=== PATIENT | female | born 1970 | race American Indian/Alaskan Native ===

== ENCOUNTER 2021-02-19 09:02 | Emergency (ER) | payer OTHER ==
[2021-02-19] MEDS ORDERED: ONDANSETRON 4 MG/2 ML INJ IV ONE (09:20)
[2021-02-19] MEDS ORDERED: MORPHINE 4 MG/1 ML INJ IV ONE (09:20)
--- NOTE | 2021-02-19 09:24 | Emergency Department Report ---
ED Abdominal Pain HPI - General Stated Complaint: LOW BACK PAIN Time Seen by Provider: 02/19/21 09:16 Source: patient, EMS - History of Present Illness Initial Comments: Patient is 50 years old female with history of hypertension and hypothyroidism. Patient presented to the ER complaining of sudden onset of right flank pain that radiated down to her suprapubic area. Patient stated the pain started last night. Patient described her pain as cramping in nature. Patient pain associated with nausea but no vomiting. Patient also describes increased urinary frequency and dysuria. No hematuria. No fever or chills. MD Complaint: abdominal pain, flank pain -: Last night Location: suprapubic, R flank Migration to: no migration Severity: severe Severity scale (0 -10): 10 Quality: sharp Associated Symptoms: nausea - Related Data Allergies Allergy/AdvReac Type Severity Reaction Status Date / Time No Known Allergies Allergy Verified 02/19/21 09:20 ED Review of Systems ROS: Stated complaint: LOW BACK PAIN Other details as noted in HPI Comment: All other systems reviewed and negative Constitutional: denies: chills, fever Respiratory: denies: cough, shortness of breath, SOB with exertion Cardiovascular: denies: chest pain, palpitations Gastrointestinal: abdominal pain, nausea. denies: vomiting, diarrhea, constipation, hematemesis Genitourinary: urgency, frequency Musculoskeletal: back pain Neurological: denies: headache, weakness ED Physical Exam - General General appearance: alert, in no apparent distress - Head Head exam: Present: atraumatic, normocephalic, normal inspection - Eye Eye exam: Present: normal appearance, PERRL - ENT ENT exam: Present: normal exam, normal orophraynx, mucous membranes moist - Neck Neck exam: Present: normal inspection, full ROM. Absent: tenderness, meningismus - Respiratory Respiratory exam: Present: normal lung sounds bilaterally - Cardiovascular Cardiovascular Exam: Present: regular rate, normal rhythm, normal heart sounds - GI/Abdominal GI/Abdominal exam: Present: soft, normal bowel sounds. Absent: distended, tenderness, guarding, rebound, rigid, organomegaly, mass, bruit, pulsatile mass, hernia - Extremities Exam Extremities exam: Present: normal inspection, full ROM, normal capillary refill. Absent: tenderness, pedal edema, joint swelling - Back Exam Back exam: Present: normal inspection, full ROM, CVA tenderness (R). Absent: CVA tenderness (L), muscle spasm, paraspinal tenderness, vertebral tenderness - Neurological Exam Neurological exam: Present: alert, oriented X3, CN II-XII intact, normal gait, reflexes normal. Absent: motor sensory deficit - Psychiatric Psychiatric exam: Present: normal mood - Skin Skin exam: Present: warm, intact, normal color ED Course Vital Signs 02/19/21 02/19/21 02/19/21 09:20 09:54 15:18 Temperature 97.7 F Pulse Rate 62 54 L Respiratory 16 16 Rate Blood Pressure 145/84 Blood Pressure 130/74 [Left] O2 Sat by Pulse 96 98 Oximetry ED Medical Decision Making - Lab Data Result diagrams: 02/19/21 09:20 02/19/21 09:20 - Radiology Data Radiology results: report reviewed - Medical Decision Making Patient is 50 years old female with history of hypertension and hypothyroidism. Patient presented to the ER complaining of sudden onset of right flank pain that radiated down to her suprapubic area. Patient stated the pain started last night. Patient described her pain as cramping in nature. Patient pain associated with nausea but no vomiting. Patient also describes increased urinary frequency and dysuria. No hematuria. No fever or chills. Patient received morphine, Dilaudid and Zofran. Patient stated that she is feeling better. Labs reviewed and showed a UTI. Patient received Rocephin 1 g IV. Patient stated that she was diagnosed with sciatica by her primary care physician few days ago. Patient advised to follow-up back with her primary doctor for further management including an MRI of the back. Patient given prescription for tramadol, Zofran and prednisone and Macrobid and advised to return to the ER if she develop any new symptoms. Critical care attestation.: If time is entered above; I have spent that time in minutes in the direct care of this critically ill patient, excluding procedure time. ED Disposition Clinical Impression: Acute abdominal pain, Acute back pain, UTI (urinary tract infection) Disposition: 01 HOME / SELF CARE / HOMELESS Is pt being admited?: No Condition: Stable Instructions: Acute Back Pain, Adult, Urinary Tract Infection, Adult, [id number], Abdominal Pain, Adult, [id number] Referrals: PRIMARY CARE, [Primary Care Provider] - 3-5 Days
[2021-02-19 09:57] LABS: Basophils # (Auto) 0.2 K/mm3 (0.0-0.1); Basophils % (Auto) 1.8 % (0.0-1.8); Eosinophils # (Auto) 0.2 K/mm3 (0.0-0.4); Eosinophils % (Auto) 2.6 % (0.0-4.3); Hematocrit 40.2 % (30.3-42.9); Hemoglobin 13.4 gm/dl (10.1-14.3); Lymphocytes # (Auto) 1.9 K/mm3 (1.2-5.4); Lymphocytes % (Auto) 21.4 % (13.4-35.0); Mean Corpuscular HGB Conc 33 % (30-34); Mean Corpuscular Volume 81 fl (79-97); Monocytes # (Auto) 0.4 K/mm3 (0.0-0.8); Monocytes % (Auto) 4.2 % (0.0-7.3); Platelet Count 276 K/mm3 (140-440); Red Blood Count 4.98 M/mm3 (3.65-5.03); Red Cell Distribution Width 14.5 % (13.2-15.2)
[2021-02-19 10:20] LABS: BUN/Creatinine Ratio TNR; Blood Urea Nitrogen TNR mg/dL (7-17)
[2021-02-19 10:21] LABS: Alanine Aminotransferase TNR units/L (7-56); Albumin TNR g/dL (3.9-5); Bilirubin,Direct TNR mg/dL (0-0.2); Calcium TNR mg/dL (8.4-10.2)
[2021-02-19 10:22] LABS: Hemolysis Index TNR
[2021-02-19 11:13] LABS: Bilirubin,Urine NEG (Negative); Blood,Urine NEG (Negative); Color,Urine Yellow (Yellow)
[2021-02-19] MEDS ORDERED: HYDROmorphone 1 MG/1 ML INJ IV ONE (12:05)
--- NOTE | 2021-02-19 14:48 | Cat Scan Report ---
CT ABDOMEN AND PELVIS WITHOUT CONTRAST INDICATION / CLINICAL INFORMATION: ABDOMINAL PAIN. TECHNIQUE: Axial CT images were obtained through the abdomen and pelvis without IV contrast. All CT scans at this location are performed using CT dose reduction for ALARA by means of automated exposure control. COMPARISON: None available. FINDINGS: LOWER CHEST: No significant abnormality. LIVER: No significant abnormality. GALLBLADDER: Cholecystectomy. BILE DUCTS: No significant abnormality. PANCREAS: No significant abnormality. SPLEEN: No significant abnormality. ADRENALS: No significant abnormality. RIGHT KIDNEY / URETER: No significant abnormality. LEFT KIDNEY / URETER: No significant abnormality. STOMACH / SMALL BOWEL: Tiny hiatal hernia. Small bowel is nondilated COLON: No significant abnormality. APPENDIX: No significant abnormality. PERITONEUM: No free fluid. No free air. No fluid collection. LYMPH NODES: No significant adenopathy. AORTA / ARTERIES: No significant abnormality. IVC / VEINS: No significant abnormality. URINARY BLADDER: No significant abnormality. REPRODUCTIVE ORGANS: Bilateral adnexal clips. ADDITIONAL FINDINGS: None. SKELETAL SYSTEM: No significant abnormality. IMPRESSION: 1. No significant abnormality. Signer Name: Antonio Chao MD Signed: 02/19/2021 2:43 PM Workstation Name: [id number]
[2021-02-19] MEDS ORDERED: cefTRIAXone/NS 1 GM/50 ML 1 GM/50 ML BAG IV ONE (14:58)
[2021-02-19 15:22] VITALS: BP 130/74
[2021-02-19 16:18] LABS: BUN/Creatinine Ratio 15; Blood Urea Nitrogen 12 mg/dL (7-17); Calcium 9.8 mg/dL (8.4-10.2)
[2021-02-19 16:19] LABS: Hemolysis Index 8
[2021-02-19] MEDS ORDERED: traMADol 50 MG TAB PO ONE (17:22)
[2021-02-19 17:34] LABS: Alanine Aminotransferase 21 units/L (7-56); Albumin 3.9 g/dL (3.9-5)
[2021-02-19 17:35] LABS: Bilirubin,Direct < 0.2 mg/dL (0-0.2)
== END 2021-02-19 18:29 | disposition home or self-care (01) ==
LOC: ED 09:02
DX: N39.0 Urinary tract infection, site not specified (principal); R10.31 Right lower quadrant pain; M54.50 Low back pain, unspecified
CPT/HCPCS: 36415; 74176; 80048; 80076; 81001; 83690; 85025; 87086; 96365; 96375; 99284; J0696; J1170; J2270; J2405